=== PATIENT | female | born 1995 | race Two or more races ===

== ENCOUNTER 2017-02-04 21:56 | Emergency (ER) | payer OTHER ==
[~2017-02-04 21:56] MED LIST: BACTRIM DS TABL1 TA1 PO; BACTRIM DS TABL1 TAB PO; BENADRYL PO; CLEOCIN PO; COLACE PO; DERMACORT1 GM TOP; DIFLUCAN PO; FAMOTIDINE PO; FLEXERIL PO; HYDROCORTISONE28 GM TOP; IBUPROFEN800 MG PO; KEFLEX500 MG PO; KENALOG IN ORABA5 GM TOP; MEDROL DOSEPAK4 MG PO; MIRALAX255 GM PO; NO MEDICATIONS; PHENERGAN PO; PREDNISONE PO; PYRIDIUM PO; TYLENOL #3 PO; VOLTAREN75 MG PO; ZYRTEC PO
== END 2017-02-05 00:45 | disposition left against medical advice (07) ==
LOC: CED 21:56
DX: Z53.21 Procedure and treatment not carried out due to patient leaving prior to being seen by health care provider (principal)